=== PATIENT | male | born 1985 | race Caucasian/White ===

== ENCOUNTER 2017-02-05 17:12 | Emergency (ER) | payer MEDICAID ==
--- NOTE | 2017-02-05 17:14 | EDPHY ---
H & P Time Seen by Provider: 02/05/17 17:15 HPI/ROS: CHIEF COMPLAINT: Head trauma HISTORY OF PRESENT ILLNESS: This patient is a 31 year old male brought in by [facility] who presents to the Emergency Department with head trauma secondary to being tased in the back by police and falling forward, hitting a rock wall. He denies loss of consciousness. He was placed in a c-collar prior to transport. Upon arrival, he is reluctant to answer questions and regularly requests an estate attorney. He does report hitting his head but is unsure where he is injured. He denies weakness, difficulty speaking, vision loss, headache, or any additional complaints. He denies any pertinent medical history. REVIEW OF SYSTEMS: A ten point review of systems was performed and is negative with the exception of the items mentioned in the HPI. Source: Patient, Police - Medical/Surgical History Hx Asthma: Yes Hx Chronic Respiratory Disease: Yes Hx Diabetes: Yes Hx Cardiac Disease: Yes Hx Renal Disease: Yes Hx Cirrhosis: Yes Hx Alcoholism: Yes Hx HIV/AIDS: Yes Hx Splenectomy or Spleen Trauma: Yes Other PMH: denies - Social History Smoking Status: Current every day smoker Additional Social History: States that he is a student of [employer]. - Physical Exam Exam: General Appearance: Alert and interactive, but not wanting to answer questions. Vital signs reviewed. HR 120-130s. Head: Left parietal cephalohematoma. 3/4 cm abrasion on the top of his scalp. Eyes: Pupils equal and round, no conjunctival injection, no discharge. Anicteric. No nystagmus. ENT, Mouth: No hemotympanum. Mucous membranes are moist, no oropharyngeal erythema or edema. Neck: No lymphadenopathy, supple, no midline tenderness. No pain with active range of motion of his neck. C-collar cleared by myself on exam. Respiratory: Lungs are clear to auscultation; no wheezes, rales, or rhonchi. Cardiovascular: Tachycardic; no murmur, rub, or gallop. Gastrointestinal: Abdomen is soft and nontender, no masses or organomegaly, bowel sounds normal. Skin: Warm and dry, no rashes on exposed skin, normal color. Back: Nontender to palpation over the thoracolumbar spine. No CVAT. Small puncture wound from taser with mild bleeding located superior to the right scapula. Extremities: No lower extremity edema, no calf tenderness or swelling. Neurological: Alert and oriented. Moving all four extremities easily and equally. Strength is 5/5 with testing of major motor groups in all 4 extremities. Sensation is intact to light touch. Psychiatric: Anxious affect. No agitation. Constitutional: Initial Vital Signs Temperature (C) 37.3 C 02/05/17 17:22 Heart Rate 139 H 02/05/17 17:22 Respiratory Rate 20 02/05/17 17:22 Blood Pressure 128/76 H 02/05/17 17:22 O2 Sat (%) 95 02/05/17 17:22 O2 Delivery Mode Room Air Allergies/Adverse Reactions: No Known Allergies Allergy (Verified 05/08/16 18:12) Home Medications: Medication Instructions Recorded epINEPHrine [Epipen] 0.3 mg IM ONCE PRN #1 ml 09/11/13 Medical Decision Making - Diagnostics EKG Interpretation: The 12 lead EKG was interpreted by myself: sinus tachycardia, rate 127; no ischemic changes. See hard copy and/or "tracemaster" electronic copy for interpretation. Imaging Results: Imaging Impressions Head CT 02/05/17 17:20 Impression: 1. Left parietal scalp hematoma. 2. No skull fracture. 3. No intracranial hemorrhage or epidural/subdural hematoma. Findings and recommendations discussed with Emergency Department physician, MICHELLE REYNAGA at 1745 hour, 02/05/2017. Final report concurs with initial preliminary interpretation. Imaging: Discussed imaging studies w/ bioinformatics assistant Radiologist (Left parietal cephalohematoma) ED Course/Re-evaluation: This 31-year-old male presents with [employer] for medical clearance; he reports head trauma secondary to falling into a rock while after being tased in the back by police. He is normally healthy. On exam, there is a puncture wound superior to his right scapula secondary to the taser and a palpable supple hematoma to his left parietal scalp. However, given [employer] report and suspected intoxication the possibly drug use by patient, will proceed with CT of the head. 1755: Imaging results reported to me by Dr. Pedro Pablo Olivera, radiology. Normal head CT. I have reviewed the films. No acute intracranial injury and no skull fracture. Cephalohematoma is noted on the films. Patient was re-examined. He remains alert and awake. He continues to refuse to tell me whether not he has been drinking alcohol or whether he has taken any illicit substances. I have not found any life or limb threatening injuries related to his tasing. Vital signs at the time of discharge show a heart rate of 89 with a blood pressure of 113/78. He continues to ask for an estate attorney. He is being taken to senior living by the police. The patient is medically cleared at this time and will be discharged home to [facility] with customary return precautions. Differential Diagnosis: I considered a differential diagnosis that includes but is not limited to skull fracture, intracranial hemorrhage, concussion, cephalohematoma, scalp laceration , cervical spine injury, intrathoracic injury, and intra-abdominal injury. Departure - Departure Disposition: Home, Routine, Self-Care Clinical Impression: Medical clearance for incarceration Scalp contusion Qualifiers: Encounter type: initial encounter Qualified Code(s): S00.03XA - Contusion of scalp, initial encounter Taser injury Qualifiers: Encounter type: initial encounter Qualified Code(s): T75.4XXA - Electrocution, initial encounter Condition: Good Instructions: Head Injury (ED), Care After Taser Removal (ED) Additional Instructions: Return to the Emergency Department with severe headache, uncontrollable nausea or vomiting, dizziness, weakness, confusion, or other serious concerns. Referrals: [facility],. [Clinic] - As per Instructions Report Scribed for: Michelle Reynaga Report Scribed by: Sarahi De La Rosa Date of Report: 02/05/17 Time of Report: 17:15 Physician Review and Approval Statement: 02/05/17 17:13 Portions of this note were transcribed by the medical imaging specialist. I, Dr. Michelle Reynaga, personally performed the history, physical exam, and medical decision- making; and confirmed the accuracy of the information in the transcribed note.
[2017-02-05 17:25] VITALS: RESP 20
--- NOTE | 2017-02-05 17:34 | CPEKG ---
Heart Rate: 127 RR Interval: 472 P-R Interval: 124 QRSD Interval: 98 QT Interval: 320 QTC Interval: 466 P [place]: 44 QRS [place]: 143 T Wave [place]: 32 EKG Severity - ABNORMAL ECG - EKG Impression: SINUS TACHYCARDIA EKG Impression: LEFT POSTERIOR FASCICULAR BLOCK Electronically Signed By: Montserrat Hernandez 05-Feb-2017 18:32:45
[2017-02-05 18:43] VITALS: BP 113/78; PULSE 89; TEMP 98.1; O2SAT 96
== END 2017-02-05 18:13 | disposition home or self-care (01) ==
LOC: EDUNIT#
DX: S00.03XA Contusion of scalp, initial encounter (principal); T75.4XXA Electrocution, initial encounter; J45.909 Unspecified asthma, uncomplicated; E11.9 Type 2 diabetes mellitus without complications; B20 Human immunodeficiency virus [HIV] disease; F17.200 Nicotine dependence, unspecified, uncomplicated; Z02.89 Encounter for other administrative examinations; W01.198A Fall on same level from slipping, tripping and stumbling with subsequent striking against other object, initial encounter; Y99.8 Other external cause status